=== PATIENT | male | born 1955 | race Caucasian/White ===

== ENCOUNTER 2016-11-17 06:58 | Outpatient (CLI) ==
--- NOTE | 2016-11-17 08:43 | US ---
EXAM: Right upper quadrant ultrasound. HISTORY: Right upper quadrant pain COMPARISON: None available TECHNIQUE: Rick scale and doppler images of the right upper quadrant. FINDINGS: The pancreas is obscured by bowel gas. The liver demonstrates diffusely increased echogenicity. No discrete hepatic lesions are identified. Hepatopedal flow is seen in the portal vein. The gallbladder is mildly contracted. No gallstones, gallbladder wall thickening or pericholecystic fluid is seen. The proximal common bile duct measures 4 mm. The right kidney measures 9.9 x 4.8 x 4.3 cm. A mid pole peripelvic hypoechoic structure seen measur ing 11 x 10 x 18 mm. No hydronephrosis is identified. IMPRESSION: Fatty infiltration of the liver. Right renal peripelvic hypoechoic structure measuring 18 mm. This could represent a peripelvic cyst. A solid lesion is difficult to exclude. This could be further evaluated on the CT scheduled for to day.
--- NOTE | 2016-11-17 09:15 | CT ---
EXAM: CT abdomen pelvis with and without contrast HISTORY: Abdominal pain COMPARISON: None TECHNIQUE: CT abdomen pelvis performed with and without intravenous contrast. Coronal and sagittal reformatted images obtained. FINDINGS: Small cystic change left lung base with imaged. No free air. No acute abnormalities of the bones. There is degenerative change in the spine. There is fusion L1 and L2. The heart normal in size. The liver appears normal. Gallbladder appears normal. Pancreas appears normal. Spleen appears normal. Adrenals appear normal. There is a 2.0 cm parapelvic cyst right kidney measuring s imple fluid attenuation. Sub centimeter hypodensity left kidney, too small to characterize No hydron ephrosis or nephrolithiasis. Bladder only minimally distended and poorly evaluated, grossly unremar kable. Prostate top normal in size with calcification. Aorta normal in caliber with atherosclerosi s. Small bilateral fat containing inguinal hernias. No lymphadenopathy or ascites. Small fat-cont aining umbilical hernia. Stomach appears normal. No dilated loops small bowel. Appendix not visua lized. Mild colonic diverticulosis. No inflammatory stranding identified in the abdomen pelvis. IMPRESSION: 1. No acute inflammatory process identified in the abdomen or pelvis. 2. Mild colonic diverticulosis. 3. Right renal parapelvic cyst.
== END 2016-11-17 06:59 | disposition home or self-care (01) ==
LOC: RAD 06:58
PROVIDERS: ATTEND Family Medicine
DX: R10.9 Unspecified abdominal pain (principal)

== ENCOUNTER 2016-11-18 07:46 | Outpatient (CLI) ==
--- NOTE | 2016-11-18 10:38 | NM ---
EXAM: Hepatobiliary scan HISTORY: Abdominal pain. COMPARISON: None of this type. Ultrasound 11/17/2016. CT 11/17/2016. PROCEDURE: The patient was injected with 5.4 mCi of 99mTc mebrofenin intravenously. Images of the a bdomen were obtained at 5 min intervals for 30 minutes. Additional images were obtained at 45 minut es and 1 hour. The patient was then injected with 2 mcg of CCK by slow infusion while images of the gallbladder were obtained to assess gallbladder contraction. The patient reported pain and nausea as sociated with the administration of CCK. FINDINGS: Sequential images demonstrate normal uptake of tracer into the liver. Activity is seen in the intrahepatic biliary ducts at about 15 minutes. The activity appears in the gallbladder at abo ut 15 minutes. Subsequent images demonstrate increasing activity in the gallbladder. Activity firs t appears in the small bowel at 30 minutes. The gallbladder ejection fraction is 58% . IMPRESSION: 1.Normal hepatobiliary scan. 2.The gallbladder ejection fraction is 58% (normal).
== END 2016-11-18 07:47 | disposition home or self-care (01) ==
LOC: RAD 07:46
PROVIDERS: ATTEND Family Medicine
DX: R10.9 Unspecified abdominal pain (principal)

== ENCOUNTER 2016-11-22 09:50 | Outpatient (CLI) ==
--- NOTE | 2016-11-22 11:47 | CT ---
EXAM: CT chest with contrast HISTORY: Chest wall pain and right upper quadrant pain COMPARISON: CT abdomen pelvis 11/17/2016 TECHNIQUE: Serial axial images of the chest were obtained after 75 ml of Omnipaque IV contrast was administered. These were obtained from the lung apices to the upper abdomen. FINDINGS: The thyroid is normal. Visualized vessels are unremarkable. There is no dissection, ane urysm or stenosis. The heart is normal in size without pericardial effusion. There is no mediastin al, hilar or axillary pathologically enlarged lymph nodes. There is no pneumothorax or pleural effusion. There is minimal emphysematous disease. There is no acute consolidation, nodule or mass. The airways are patent. There is no abnormal ground-glass. Soft tissues in the upper abdomen are unremarkable. The osseous structures demonstrate significant degenerative disease throughout the thoracic spine with no acute compression fracture. The ribs are unremarkable with no visualized fracture. IMPRESSION: 1. No acute abnormality to account for patient's symptoms. 2. Minimal emphysematous disease is present with no acute consolidation. 3. Scattered degenerative disease throughout the thoracic spine with no acute compression fracture or subluxation.
== END 2016-11-22 09:51 | disposition home or self-care (01) ==
LOC: RAD 09:50
PROVIDERS: ATTEND Family Medicine
DX: R07.9 Chest pain, unspecified (principal); R10.9 Unspecified abdominal pain

== ENCOUNTER 2018-12-26 11:03 | Outpatient (CLI) ==
--- NOTE | 2018-12-26 16:17 | CT ---
EXAM: CT lumbar spine without contrast HISTORY: Bilateral arm numbness, left leg numbness and pain COMPARISON: None TECHNIQUE: CT lumbar spine performed without intravenous contrast. Coronal and sagittal reformatted images obtained. FINDINGS: No acute fracture. Chronic fusion of L1 and L2. 3 mm retrolisthesis L2 on L3. 2 mm ante rolisthesis L4 on L5. Laminectomy change L5. Multilevel marginal osteophyte formation. Multilevel intervertebral disc space narrowing. Multilevel facet and uncovertebral hypertrophy. Sacroiliac rochelle nts intact with mild degenerative change. Aorta normal in caliber. Atherosclerosis. Right renal cy st measures 2 cm. Colonic diverticulosis, incompletely imaged. T12-L1: No central canal or neural foraminal narrowing. L1-L2: No central canal or neural foraminal narrowing. L2-L3: Retrolisthesis, posterior disc osteophyte complex and facet arthrosis causing mild central ca nal and mild to moderate bilateral neural foraminal narrowing. L3-L4: Posterior disc osteophyte complex and facet arthrosis causing moderate bilateral neural pallavi inal narrowing, greater on the right. L4-L5: Posterior disc osteophyte complex and facet arthrosis causing mild central canal and moderate to severe bilateral neural foraminal narrowing. L5-S1: Postop change with laminectomy. Posterior disc osteophyte complex and facet arthrosis causing severe right and moderate to severe left neural foraminal narrowing. IMPRESSION: 1. Chronic discogenic degenerative disease and facet arthrosis. Please see segmental analysis, noti ng multilevel central canal and neural foraminal narrowing. 2. Fusion L1-L2, may be chronic or congenital. 3. Postsurgical changes.
--- NOTE | 2018-12-26 16:24 | CT ---
EXAM: CT cervical spine without contrast HISTORY: Bilateral arm numbness, left leg numbness and pain COMPARISON: None TECHNIQUE: CT cervical spine performed without intravenous contrast. Coronal and sagittal reformatt ed images obtained. FINDINGS: Vertebral bodies normal height. No fracture. No subluxation. Straightening of the teresa l cervical lordosis. Multilevel intervertebral disc space narrowing with severe intervertebral disc space narrowing C3-C4 through C6-C7. Partial fusion C5-C6. Multilevel facet and uncovertebral hyper trophy. Prevertebral soft tissues appear normal. C2-C3: Posterior disc osteophyte complex and facet arthrosis causing mild to moderate bilateral neur al foraminal narrowing. C3-C4: Posterior disc osteophyte complex and facet arthrosis causing mild central canal and moderate to severe bilateral neural foraminal narrowing. C4-C5: Posterior disc osteophyte complex and facet arthrosis causing mild central canal and moderate to severe bilateral neural foraminal narrowing. C5-C6: Posterior disc osteophyte complex and facet arthrosis causing mild central canal and mild to moderate bilateral neural foraminal narrowing. C6-C7: Posterior disc osteophyte complex and facet arthrosis causing moderate central canal, severe right and moderate to severe left neural foraminal narrowing. C7-T1: No definite central canal or neural foraminal narrowing. IMPRESSION: 1. Advanced chronic discogenic degenerative disease and facet arthrosis. Please see segmental cailin sis, noting multilevel central canal and neural foraminal narrowing. 2. Partial fusion C5-C6. 3. Straightening of the normal cervical lordosis.
== END 2018-12-26 11:04 | disposition home or self-care (01) ==
LOC: RAD 11:03
PROVIDERS: ATTEND Family Medicine
DX: M54.41 Lumbago with sciatica, right side (principal); M54.2 Cervicalgia; G89.29 Other chronic pain; M54.10 Radiculopathy, site unspecified